=== PATIENT | female | born 2000 | race Caucasian/White ===

== ENCOUNTER 2020-10-11 19:31 | Emergency (ER) | payer SELFPAY ==
[~2020-10-11] VITALS: Ht 157.5 cm; Wt 63.5 kg
== END 2020-10-11 21:31 | disposition home or self-care (01) ==
LOC: FSED 19:38
DX: H57.04 Mydriasis (principal)
CPT/HCPCS: 70450; 99283

== ENCOUNTER 2022-01-09 12:19 | Emergency (ER) | payer BC ==
[~2022-01-09] VITALS: Ht 157.5 cm; Wt 56.7 kg
== END 2022-01-09 13:28 | disposition home or self-care (01) ==
LOC: FSED 12:26
DX: R50.9 Fever, unspecified (principal); J10.1 Influenza due to other identified influenza virus with other respiratory manifestations; R05.9 Cough, unspecified
CPT/HCPCS: 83518; 87400; 99282

== ENCOUNTER 2022-04-21 21:41 | Emergency (ER) | payer BC, MEDICARE ==
[~2022-04-21] VITALS: Ht 157.5 cm; Wt 56.7 kg
[2022-04-21] MEDS ORDERED: SODIUM CHLORIDE 0.9% 1000ML 1,000 ML IV STA (22:02)
[2022-04-21] MEDS ORDERED: SODIUM CHLORIDE 0.9% 1000ML 1,000 ML ONE (22:38)
[2022-04-21 23:38] VITALS: BP 131/60
== END 2022-04-21 23:38 | disposition home or self-care (01) ==
LOC: FSED 21:49
DX: O26.892 Other specified pregnancy related conditions, second trimester (principal); R10.9 Unspecified abdominal pain; Z3A.26 26 weeks gestation of pregnancy
CPT/HCPCS: 76805; 80053; 80076; 81003; 85025; 99283; J7030